=== PATIENT | female | born 1985 | race American Indian/Alaskan Native ===

== ENCOUNTER 2021-01-26 22:27 | Emergency (ER) | payer OTHER, SELFPAY ==
[2021-01-26 23:11] VITALS: BP 131/75
[2021-01-26] MEDS ORDERED: LORazepam 1 MG TAB PO ONE (23:16)
[2021-01-26] MEDS ORDERED: IBUPROFEN 800 MG TAB PO ONE (23:16)
--- NOTE | 2021-01-26 23:59 | XRay Report ---
CHEST 2 VIEWS INDICATION: cough. COMPARISON: None FINDINGS: SUPPORT DEVICES: None. HEART: Within normal limits. LUNGS/PLEURA: Patchy multifocal airspace disease greatest throughout the left lung. No pneumothorax. ADDITIONAL FINDINGS: None. IMPRESSION: 1. Pulmonary findings as above. Signer Name: Chris Pinedo MD Signed: 01/26/2021 11:54 PM Workstation Name: [id number]
--- NOTE | 2021-01-27 01:44 | Emergency Department Report ---
ED Shortness of Breath HPI - General Chief Complaint: Weakness Stated Complaint: HYPERVENTILATING, CP, COUGH Time Seen by Provider: 01/26/21 23:15 Source: patient, EMS Mode of arrival: Stretcher Limitations: No Limitations - History of Present Illness Initial Comments: Patient is a 35-year-old F [place] female who is presenting with cough congestion body aches and fever. Patient has been feeling ill for the last 2 to 3 days. Is not vaccinated for COVID-19. Patient also states that she is having episodes where she is passing out spontaneously. States that she lost her vision completely. Patient is having episodes where she feels like she can feel her face hands and feet and appears quite anxious. Denies nausea vomiting diarrhea. She does have generalized body aches all over. Patient even states that her eyes hurt - Related Data Previous Rx's Medication Instructions Recorded Last Taken Type Albuterol Mdi (or & Nicu Only) 2 puff IH QID PRN #1 inhalation 01/27/21 Unknown Rx [ProAir HFA Inhaler] Azithromycin [Zithromax Z-PRECIOUS] 250 mg PO DAILY #6 tablet 01/27/21 Unknown Rx Benzonatate [Tessalon Perles] 100 mg PO Q8HR #10 capsule 01/27/21 Unknown Rx HYDROcodone/APAP 5-325 [[place] 1 each PO Q6HR PRN #10 tablet 01/27/21 Unknown Rx 5/325] Ondansetron [Zofran Odt] 4 mg PO Q8HR #10 tab.rapdis 01/27/21 Unknown Rx predniSONE [Deltasone] 50 mg PO QDAY #5 tab 01/27/21 Unknown Rx Allergies Allergy/AdvReac Type Severity Reaction Status Date / Time pine nut Allergy Anaphylaxis Verified 01/26/21 23:12 ED Review of Systems ROS: Stated complaint: HYPERVENTILATING, CP, COUGH Other details as noted in HPI Comment: All other systems reviewed and negative ED Past Medical Hx - Past Medical History Previous Medical History?: No - Surgical History Hx Cholecystectomy: Yes Additional Surgical History: gastric bypass, tonsillectomy - Social History Smoking Status: Never Smoker - Medications Home Medications: Home Medications Medication Instructions Recorded Confirmed Last Taken Type Albuterol Mdi (or & Nicu Only) 2 puff IH QID PRN #1 inhalation 01/27/21 Unknown Rx [ProAir HFA Inhaler] Azithromycin [Zithromax Z-PRECIOUS] 250 mg PO DAILY #6 tablet 01/27/21 Unknown Rx Benzonatate [Tessalon Perles] 100 mg PO Q8HR #10 capsule 01/27/21 Unknown Rx HYDROcodone/APAP 5-325 [[place] 1 each PO Q6HR PRN #10 tablet 01/27/21 Unknown Rx 5/325] Ondansetron [Zofran Odt] 4 mg PO Q8HR #10 tab.rapdis 01/27/21 Unknown Rx predniSONE [Deltasone] 50 mg PO QDAY #5 tab 01/27/21 Unknown Rx ED Physical Exam - General Limitations: No Limitations General appearance: alert, anxious - Head Head exam: Present: atraumatic, normocephalic - Eye Eye exam: Present: normal appearance - ENT ENT exam: Present: mucous membranes moist - Neck Neck exam: Present: normal inspection - Respiratory Respiratory exam: Present: normal lung sounds bilaterally. Absent: respiratory distress, wheezes, rales, rhonchi - Cardiovascular Cardiovascular Exam: Present: regular rate, normal rhythm, normal heart sounds. Absent: systolic murmur, diastolic murmur, rubs, gallop - GI/Abdominal GI/Abdominal exam: Present: soft, normal bowel sounds. Absent: distended, tenderness, guarding, rebound - Extremities Exam Extremities exam: Present: normal inspection - Back Exam Back exam: Present: normal inspection - Neurological Exam Neurological exam: Present: alert, oriented X3 - Psychiatric Psychiatric exam: Present: normal affect, normal mood - Skin Skin exam: Present: warm, dry, intact, normal color. Absent: rash ED Course Vital Signs 01/26/21 22:45 Temperature 100.6 F H Pulse Rate 98 H Respiratory 18 Rate Blood Pressure 131/75 O2 Sat by Pulse 98 Oximetry ED Medical Decision Making - Radiology Data [facility] [address] [place] [address] XRay Report Signed Patient: ERASMO HERNANDEZ MR#: [id number] : 1985 Acct:[id number] Age/Sex: 35 / F ADM Date: 01/26/21 Loc: ED Attending Dr: Ordering Physician: OPAL RUBI MD Date of Service: 01/26/21 Procedure(s): XR chest routine 2V Accession Number(s): [id number] cc: OPAL RUBI MD Fluoro Time In Minutes: CHEST 2 VIEWS INDICATION: cough. COMPARISON: None FINDINGS: SUPPORT DEVICES: None. HEART: Within normal limits. LUNGS/PLEURA: Patchy multifocal airspace disease greatest throughout the left lung. No pneumothorax. ADDITIONAL FINDINGS: None. IMPRESSION: 1. Pulmonary findings as above. Signer Name: Chris Pinedo MD Signed: 01/26/2021 11:54 PM Workstation Name: [id number] - Medical Decision Making Patient is lungs are clear vital signs are normal. I do see evidence of pneumonia present especially in the left lower lobe. Great deal of the patient's symptoms I believe are anxiety induced. Tried to reassure the patient that despite likely having COVID-19 she is young and would likely do well. Start the patient on azithromycin prednisone albuterol inhaler [place] for the body aches. Patient also encouraged to get a pulse oximeter for home and return if her O2 sats are less than 92% Critical care attestation.: If time is entered above; I have spent that time in minutes in the direct care of this critically ill patient, excluding procedure time. ED Disposition Clinical Impression: Atypical pneumonia, Suspected COVID-19 virus infection, Anxiety reaction Disposition: DC-01 TO HOME OR SELFCARE Is pt being admited?: No Does the pt Need Aspirin: No Condition: Stable Instructions: Managing Anxiety, Adult, Community-Acquired Pneumonia, Adult, [id number], COVID-19 Frequently Asked Questions, COVID-19 Additional Instructions: Please buy a home pulse oximeter to monitor your oxygen levels. These can be bought at [employer] and most grocery stores. The cost is approximately $20-$30. Please return to the emergency department if your oxygen level is less than 92% Referrals: SINA HOLLEY MD [Referring] - 3-5 Days Time of Disposition: 01:46
== END 2021-01-27 02:30 | disposition home or self-care (01) ==
LOC: ED 22:27
DX: J18.9 Pneumonia, unspecified organism (principal); F41.9 Anxiety disorder, unspecified; Z20.822 Contact with and (suspected) exposure to COVID-19; Z90.49 Acquired absence of other specified parts of digestive tract; Z90.89 Acquired absence of other organs; Z91.010 Allergy to peanuts; Z79.899 Other long term (current) drug therapy
CPT/HCPCS: 71046; 99283